=== PATIENT | female | born 1995 | race Caucasian/White ===

== ENCOUNTER 2024-03-05 16:07 | Emergency (ER) | payer OTHER ==
[~2024-03-05] VITALS: Ht 165.1 cm; Wt 95.3 kg
[2024-03-05] MEDS ORDERED: DROSPIRENONE-E1 EACH PO (16:19)
[2024-03-05] MEDS ORDERED: Lopressor25 MG PO (16:20)
[2024-03-05] MEDS ORDERED: SODIUM CHLORIDE 0.9% 1,000 ML IV ONE (17:00)
[2024-03-05] MEDS ORDERED: Ondansetron Hydrochloride 4 MG/2 ML VIAL IV ONE (17:00)
[2024-03-05] MEDS ORDERED: IOHEXOL 300 MG/ML 100 ML VIAL IV ONE (17:05)
[2024-03-05 17:16] LABS: BASO % 0.2 % (0.0-1.0); EOS # 0.1 10*3/uL (0.0-0.4); HEMATOCRIT 38.6 % (37.0-47.0); LYMPH # 3.1 10*3/uL (1.3-4.4); LYMPH % 23.7 % (27.0-41.0); MEAN CELL VOLUME 90.2 fl (81.0-99.0); MEAN CORPUSCULAR HGB 29.7 pg (27.0-31.0); MEAN CORPUSCULAR HGB CONC 32.9 g/dl (33.0-37.0); MEAN PLATELET VOLUME 9.7 fl (9.6-12.3); MONO # 0.7 10*3/uL (0.1-1.0); MONO % 5.7 % (3.0-9.0); PLATELET COUNT AUTOMATED 285 10*3/uL (130-400); RED BLOOD COUNT 4.28 10*6/uL (4.10-5.10); RED CELL DISTRI WIDTH 11.8 % (0-14.5)
[2024-03-05 17:39] LABS: ALKALINE PHOSPHATASE 103 U/L (46-116); BUN 8 mg/dl (9-23); CHLORIDE 106 mmol/L (98-107); LIPASE 43 U/L (12-53); POTASSIUM 3.3 mmol/L (3.4-5.1); SGPT/ALT 11 U/L (5-49); TOTAL PROTEIN 7.2 gm/dL (6.0-8.0)
[2024-03-05 17:44] LABS: ETHYL ALCOHOL < 3.0 mg/dl (<3)
[2024-03-05 18:07] LABS: BILIRUBIN Negative (Negative); BLOOD 2+ (Negative); CLARITY Cloudy (Clear); COLOR Yellow (Yellow); GLUCOSE Negative (Negative); KETONE Trace (Negative); LEUKO ESTERASE Negative (Negative); NITRITE Negative (Negative); PH 5.5 (4.5-8.0); SPECIFIC GRAVITY >= 1.030 (1.001-1.030); UROBILINOGEN 0.2 E.U./dl (0.0-1.0)
[2024-03-05 18:15] LABS: URINE AMPHETAMINES Negative (1000ng/ml); URINE BARBITURATES Negative (200ng/ml); URINE BENZODIAZEPINES Negative (200ng/ml); URINE CANNABINOIDS (THC) Negative (50ng/ml); URINE COCAINE Negative (300ng/ml); URINE METHADONE Negative (300ng/ml); URINE OPIATES Negative (300ng/ml); URINE PHENCYCLIDINE Negative (25ng/ml)
[2024-03-05] MEDS ORDERED: Ketorolac Tromethamine 15 MG/ML VIAL IV ONE (18:25)
[2024-03-05] MEDS ORDERED: POTASSIUM CHLORIDE 20 MEQ TAB PO ONE (18:25)
[2024-03-05 18:27] LABS: BACTERIA 1+; MUCOUS 2+; RBC 21-30 rbc/hpf (0-2)
[2024-03-05] MEDS ORDERED: Tamsulosin Hydrochloride 0.4 MG CAP PO ONE (20:00)
[2024-03-05] MEDS ORDERED: Acetaminophen/Oxycodone 5 MG/325 MG TABLET PO ONE (20:00)
[2024-03-05] MEDS ORDERED: ALFUZOSIN HYDRO10 MG PO (20:04)
[2024-03-05] MEDS ORDERED: CEFDINIR300 MG PO (20:04)
[2024-03-05] MEDS ORDERED: ENDOCET 5-3251 EACH PO (20:12)
== END 2024-03-05 20:53 | disposition home or self-care (01) ==
LOC: ED 16:07
PROVIDERS: Internal Medicine
DX: N20.0 Calculus of kidney (principal); R11.2 Nausea with vomiting, unspecified; Z88.1 Allergy status to other antibiotic agents; Z79.899 Other long term (current) drug therapy